=== PATIENT | female | born 1990 | race Caucasian/White ===

== ENCOUNTER 2016-10-06 13:31 | Inpatient (IN) | payer MEDICAID, OTHER ==
[~2016-10-06] VITALS: Ht 167.6 cm; Wt 131.4 kg
[2016-10-06] MEDS ORDERED: PRENAT PO (13:55)
[2016-10-06 13:56] VITALS: BP 138/80; PULSE 90; Ht 167.6 cm; Wt 131.4 kg
[2016-10-06 14:28] LABS: ADD UMIC YES; URINE BILIRUBIN (Dip) NEGATIVE (NEGATIVE); URINE BLOOD (Dip) TRACE (NEGATIVE); URINE COLOR LT. YELLOW (YELLOW); URINE GLUCOSE (Dip) NEGATIVE (NEGATIVE); URINE KETONES (Dip) NEGATIVE (NEGATIVE); URINE LEUKOCYTE ESTERASE (Dip) 2+ (NEGATIVE); URINE NITRITE (Dip) POSITIVE (NEGATIVE); URINE TOTAL PROTEIN (Dip) TRACE (NEGATIVE); URINE UROBILINOGEN (Dip) 0.2 E.U./dL (0.1-1.0)
[2016-10-06 14:38] LABS: BACTERIA,URINE FEW
--- NOTE | 2016-10-06 14:44 | RADRPT ---
PROCEDURE: US OB biophysical profile. CLINICAL INDICATION: decreased movements, PIH TECHNIQUE: Multiple sonographic images of the pelvis were obtained. The images were reviewed on a PACS workstation. COMPARISON: No prior studies are available for comparison. FINDINGS: There is a single viable intrauterine gestation. Cardiac activity is present with 128 beats per min [place]. There is a vertex presentation. The placenta is anterior. There is no evidence of placental abruption. There is a normal amount of amniotic fluid with an MICHELLE = 9.2 cm. Biophysical profile: movement 2/2 tone 2/2. breathing 2/2 MICHELLE 2/2 Total 12/02 RPTAT: AA . IMPRESSION: Normal biophysical profile. . .Hugo Jaeger MD, MD Date Time Electronically viewed and signed by .Hugo Jaeger MD, MD on 10/06/2016 14:44 .S/
[2016-10-06 15:11] LABS: ADD SCAN DIFF NO
[2016-10-06 15:15] LABS: BASOPHILS % 0.4 % (0.0-2.0); EOSINOPHILS # 0.1 10^3/ul (0.0-0.5); EOSINOPHILS % 1.2 % (0.0-7.0); HEMATOCRIT 37.4 % (37.0-47.0); HEMOGLOBIN 11.6 g/dl (12.0-16.0); LYMPHOCYTES # 1.3 10^3/ul (0.8-2.9); LYMPHOCYTES % 12.6 % (15.0-51.0); MEAN CORPUSCULAR HEMOGLOBIN 25.8 pg (29.0-33.0); MEAN CORPUSCULAR VOLUME 83.1 fl (82.0-101.0); MEAN PLATELET VOLUME 10.2 fl (7.4-10.4); MONOCYTE # 0.6 10^3/ul (0.3-0.9); MONOCYTES % 5.8 % (0.0-11.0); NEUTROPHIL # 8.1 10^3/ul (1.6-7.5); NEUTROPHILS % 79.7 % (39.0-77.0); PLATELET COUNT 306 10^3/UL (140-415); RED CELL DISTRIBUTION WIDTH 14.7 % (11.5-14.5); WHITE BLOOD COUNT 10.2 10^3/ul (4.8-10.8)
[2016-10-06 15:31] LABS: INR 0.93; PARTIAL THROMBOPLASTIN TIME 31.3 Sec (25.0-35.0); PROTIME 12.5 Sec (12.2-14.2)
[2016-10-06 15:43] LABS: ALBUMIN 3.7 g/dl (3.3-4.9); ALBUMIN/GLOBULIN RATIO 1.15; CALCIUM 9.4 mg/dl (8.4-10.2); CREATININE 0.53 mg/dl (0.44-1.00); POTASSIUM 4.2 mmol/L (3.5-5.1); TOTAL PROTEIN 6.9 g/dl (6.1-8.1); URIC ACID 5.5 mg/dl (3.1-7.9)
[2016-10-06] MEDS ORDERED: MISOPROSTOL 200 MCG TAB PR PRN (16:30)
[2016-10-06] MEDS ORDERED: MAGNESIUM SULFATE 4 GM/100 ML 100 ML IV ONE (16:30)
[2016-10-06] MEDS ORDERED: OXYTOCIN 30 UNITS/LR 500 ML IV SCH ×3 (16:30)
[2016-10-06] MEDS ORDERED: METHYLERGONOVINE 0.2 MG INJ IM PRN (16:30)
[2016-10-06] MEDS ORDERED: AMPICILLIN 2 GM/NS (PMX) 100 ML IV ONE (16:30)
[2016-10-06] MEDS ORDERED: LIDOCAINE 1% (MPF) 30 ML INJ INJ PRN (16:30)
[2016-10-06] MEDS ORDERED: BUTORPHANOL 2 MG INJ IV PRN ×2 (16:30)
[2016-10-06] MEDS ORDERED: CARBOPROST 250 MCG INJ IM PRN (16:30)
[2016-10-06] MEDS ORDERED: LACTATED RINGER'S 1,000 ML IV PRN (16:30)
[2016-10-06] MEDS ORDERED: OXYTOCIN 30 UNITS/LR 500 ML IV PRN (16:30)
[2016-10-06] MEDS: LACTATED RINGER'S 1,000 ML IV SCH (17:22)
[2016-10-06] MEDS: MAGNESIUM SULFATE 20 GM/500 ML 500 ML IV SCH (17:53)
[2016-10-06] MEDS ORDERED: LABETALOL HCL 20MG INJ ONE (20:14)
[2016-10-06] MEDS ORDERED: CEFAZOLIN 2 GM/50 ML (PMX) 50 ML IVPB ONE ×2 (20:28→20:30)
[2016-10-06] MEDS ORDERED: LABETALOL HCL 20MG INJ IV ONE (20:30)
[2016-10-06] MEDS ORDERED: AMPICILLIN 1 GM/NS (PMX) 50 ML IV SCH (20:30)
[2016-10-06] MEDS ORDERED: ONDANSETRON 4 MG INJ ONE (21:04)
[2016-10-06] MEDS ORDERED: OXYTOCIN 10 UNIT INJ ONE (21:04)
[2016-10-06] MEDS ORDERED: OXYTOCIN 30 UNITS/LR 500 ML IV ONE (21:04)
[2016-10-06] MEDS ORDERED: METOCLOPRAMIDE 10 MG INJ ONE (21:04)
[2016-10-06] MEDS ORDERED: EPHEDrine SULFATE 50 MG/5 ML SYG ONE (21:04)
[2016-10-06] MEDS ORDERED: morphine SULFATE/PF (10 MG/10 ML) INJ ONE (21:04)
--- NOTE | 2016-10-06 22:45 | HP ---
Date/Time of Note Date/Time of Note DATE: 10/06/16 TIME: 22:33 OB - History Hx of Present Free Text/Dictation 26 y.o pmigravida at 38w1d was sent for PIH evaluation . nst ND BPP NL AST was sl increased urine protein trac bp at office was 136/88 and 131/90 upto today no occasions of high bp during observation bp elevated to reach the point to induce labor magnesium sulfate was givem loading dose and hly cervidil was planed to be used for induction when I arrived it was [id number] that bp 180-190-/101/105 cervix long and closed delivery is far if we induce, explained the situation and risks ,primary section was chosen to be mode of delivery Chief Complaint: high bp Estimated Due Date: Oct 19, 2016 : 1 Para: 0 Spontaneous : 0 Therapeutic : 0 Care: Good Care Ultrasounds: Normal mid trimester US Obstetrical Complications: None Medical Complications: None Past Family/Social History * Past Medical, Surgical, Family and Obstetric Histories reviewed from chart. Blood Type: O+ Rubella: immune RPR/VDRL: Negative GBS Status: Positive HBsAG: Negative OB Admission Exam Vital Signs Vital Signs Vital Signs Date Time Temp Pulse Resp B/P Pulse Ox O2 Delivery O2 Flow Rate FiO2 10/06/16 13:56 98.0 90 138/80 Physical Exam HEENT: WNL Heart: Rhythm Normal Lungs: Clear, Equal Abdomen: WNL Extremities: Edema Reflexes: Hyperreflexia Present Cervical Dilatation: None Effacement: 0% Station: -3 Membranes: Intact Amniotic Fluid: Unevaluable Heart Rate: 140's Accelerations: Accelerations Present Decelerations: No Decelerations Varibility: Minimum Contractions on Admission: None Last 72 hours Lab Results CBC & BMP 10/06/16 14:00 Liver Function Test 10/06/16 14:00 Alanine Aminotransferase (ALT/SGPT) 49 Albumin 3.7 Alkaline Phosphatase 153 H Aspartate Amino Transf (AST/SGOT) 53 H Direct Bilirubin 0.00 Total Protein 6.9 OB Assessment/Plan Reason for admission: other (PIH) Plan: Section SON BRIDGES MD Oct 06, 2016 22:43
--- NOTE | 2016-10-06 22:53 | DELSUM ---
Delivery Summary A-C Datetime Report Generated by CPN: 10/06/2016 22:53 DELIVERY PERSONNEL Lime Plant Operator: Godoy, Joy MATERNAL INFORMATION Delivery Anesthesia: Spinal Medications in Delivery: SEE ANESTHESIA RECORDS Estimated Blood Loss (ml): 800 Placenta Cultured: No Maternal Complications: Other Other Maternal Complications: PIH LABOR SUMMARY EDC: 10/19/2016 00:00 No. Babies in Womb: 1 Attempted: No Labor Anesthesia: None LABOR INFORMATION Reason for Induction: Not Applicable Oxytocin: N/A Group B Beta Strep: Positive Antibiotics # of Doses: 2 Antibiotics Time of Last Dose: 10/06/2016 21:08 Steroids Given: None Reason Steroids Not Administered: Not Applicable Other Reason Not Administered: TERM MEMBRANES Membranes Rupture Method: Artificial Rupture of Membranes: 10/06/2016 21:36 Amniotic Fluid Color: Clear Amniotic Fluid Amount: Small CSECTION DELIVERY Primary Indication: Other Other Primary Indication: SEVERE PIH CSection Urgency: Emergency CSection Incidence: Primary Labor: N/A Elective: N/A CSection Incision: Lower Uterine Transverse BABY A INFORMATION Infant Delivery Date/Time: 10/06/2016 21:40 Method of Delivery: Born in Route : No : N/A Forceps: N/A Vacuum Extraction: Successful Shoulder Dystocia : N/A ASSISTED DELIVERY BABY A Indication for Assisted Delivery: PRESENTING PART HIGH Vacuum Number of Pulls: 1 Vacuum Number of PopOffs: 0 Vacuum Maximum Pressure Obtained: 100 Vacuum Flexographic Press Plate Setter: KIWI Total Time Vacuum Applied: 10 SECONDS SHOULDER DYSTOCIA BABY A Delivery Date/Time: 10/06/2016 21:40 PRESENTATION/POSITION BABY A Presentation: Cephalic Cephalic Presentation: Vertex Breech Presentation: N/A PLACENTA INFORMATION BABY A Placenta Delivery Time : 10/06/2016 21:41 Placenta Method of Delivery: Manual Removal Placenta Status: Delivered SCORES BABY A Heart Rate 1 min: >100 bpm Resp Effort 1 min: Good Cry Reflex Irritability 1 min: Cough/Sneeze/Pulls Away Muscle Tone 1 min: Active Motion Color 1 min: Body Colp, Extremit Blue Resuscitation Effort 1 min: Tactile Stimulation Heart Rate 5 min: >100 bpm Resp Effort 5 min: Good Cry Reflex Irritability 5 min: Cough/Sneeze/Pulls Away Muscle Tone 5 min: Active Motion Color 5 min: Body Colp, Extremit Blue Resuscitation Effort 5 min: Tactile Stimulation INFANT INFORMATION BABY A Gestational Age at Delivery: 38.1 Infant Outcome : Liveborn Infant Condition : Stable Sex: Male IDENTIFICATION/MEDS BABY A ID Band Number: [id number] ID Band Location: Right Leg; Left Arm Sensor Applied: Yes Sensor Number: [id number] Sensor Location : Cord Clamp Vitamin K Given : Not Given Erythromycin Given: Not Given WEIGHT/LENGTH BABY A Birthweight (gm): 2980 Infant Length (in): 19.50 CORD INFORMATION BABY A No. Cord Vessels: 3 Nuchal Cord : N/A Cord Blood Taken: Yes Suction: Mouth; Nose ASSESSMENT BABY A Complications: None Physical Findings at Delivery: Within Normal Limits Respirations: Appears Normal Senior Packaging Engineer/ALS Called : No Care By: JAKI/PRECIOUS Transferred To: Remains with Mother
[2016-10-06] MEDS ORDERED: NALOXONE (0.4 MG/ML) INJ IV PRN (23:00)
[2016-10-06] MEDS ORDERED: morphine SULFATE/PF (10 MG/10 ML) INJ SPINAL ONE (23:00)
[2016-10-06] MEDS ORDERED: DIPHENHYDRAMINE 50 MG INJ IV PRN (23:00)
[2016-10-06] MEDS ORDERED: EPHEDrine SULFATE 50 MG/5 ML SYG IV PRN (23:00)
[2016-10-06] MEDS ORDERED: KETOROLAC 30 MG INJ IV PRN (23:00)
[2016-10-06] MEDS ORDERED: ONDANSETRON 4 MG INJ IV PRN (23:00)
[2016-10-06] MEDS ORDERED: HYDROmorphONE 1 MG/ML SYG IV PRN ×2 (23:00)
[2016-10-06] MEDS ORDERED: morphine 2 MG INJ IV PRN ×2 (23:00)
[2016-10-07] VITALS (18 sets, daily range): BP systolic 113–135; BP diastolic 59–90; PULSE 94–127; RESP 18–20
[2016-10-07] MEDS ORDERED: LABETALOL 200 MG TAB PO PRN
[2016-10-07] MEDS ORDERED: ONDANSETRON 4 MG INJ IV PRN (01:30)
[2016-10-07] MEDS ORDERED: OXYCODONE/ACETAMINOPHEN (5/325) TAB PO PRN (01:30)
[2016-10-07] MEDS ORDERED: ZOLPIDEM 5 MG TAB PO PRN (01:30)
[2016-10-07] MEDS ORDERED: METHYLERGONOVINE 0.2 MG INJ IM PRN (01:30)
[2016-10-07] MEDS ORDERED: OXYTOCIN 30 UNITS/LR 500 ML IV PRN (01:30)
[2016-10-07] MEDS ORDERED: MISOPROSTOL 200 MCG TAB PR PRN (01:30)
[2016-10-07] MEDS ORDERED: LANOLIN 7 GM TUBE TOP PRN (01:30)
[2016-10-07] MEDS ORDERED: DIPHENHYDRAMINE 50 MG INJ IV PRN (01:30)
[2016-10-07] MEDS ORDERED: CARBOPROST 250 MCG INJ IM PRN (01:30)
--- NOTE | 2016-10-07 03:16 | OPR ---
DATE OF OPERATION: 10/06/2016 PREOPERATIVE DIAGNOSES: Intrauterine 38 weeks 1 day with severe -induced hyperte nsion. POSTOPERATIVE DIAGNOSES: Intrauterine 38 weeks 1 day with severe -induced hypert ension. Delivered normal male infant with 9 and 9. OPERATION PROCEDURE: Primary low transverse section. ANESTHESIA: Spinal. ANESTHESIOLOGIST: Dr. Catherine. SURGEON: Laura Dudley MD MOBILE WE[employer] APPLICATION DEVELOPER: Dr. Riley ESTIMATED BLOOD LOSS: 800 mL PROCEDURE: Under proper induction of spinal anesthesia, the patient was placed in the supine positi on. Abdominal wall was prepped and draped in usual aseptic manner. A transverse incision was made approximately 2 fingers above the pubic rami. Incision was carried down through the subcutaneous ti ssue to the anterior recti fascia which was incised transversely in length of the incision. Facial flap was created, 2 rectus muscles split in midline, and peritoneal cavity was entered. Low segment was exposed after bladder blade was introduced, and a transverse incision was made above the uterov esical reflection. Incision carried down and reached the amniotic fluid revealing clear moderate am ount of amniotic fluid, and normal male infant was born from the left occiput transverse position by using gentle vacuum because the space was tight and ____. The mouth and nose were cleaned, and cor d was delayed clamped and cut, and handed to the respiratory care personnel for further care. Cord blood was obtained. The placenta was removed. The uterus was exposed. Uterus was exteriorized. T here was some membranous tissue left in the uterus and some possibly a little ____ attached which wa s curetted with a large curet. One dose of Hemabate was given because the uterus was relaxing. Inc ision was closed using #1 chromic catgut in continuous manner, second layer using 1-0 chromic catgut with a thin ____. No bleeder was noted. Uterus was relocated into abdominal cavity after the irri gation done and sponge count taken which was correct. The uterine incisional site was rechecked for the bleeder, which was intact, and a piece of Surgicel was laid on it. The parietal peritoneum was closed using 0 chromic catgut in continuous manner. The muscle closed with 0 chromic catgut in con tinuous manner. Fascia closed with #1 Vicryl in continuous manner in 2 segments, and subcutaneous t issue was irrigated with water, and this layer was approximated with 2-0 plain in 2 layers. Skin cl osed with Insorb. Pressure dressing applied. Estimated blood loss approximately 500 mL. Urine out put during the surgery was approximately 200 mL. The patient withstood the procedure well and was s ent to recovery room in stable condition. Dictated By: LAURA SANDHU/JACKIE Conf#: [id number] DID#: [id number]
[2016-10-07] MEDS: MAGNESIUM SULFATE 20 GM/500 ML 500 ML IV SCH ×3 (05:24→23:35)
[2016-10-07] MEDS: LACTATED RINGER'S 1,000 ML IV SCH ×3 (05:25→16:24)
[2016-10-07] MEDS: IBUPROFEN 600 MG TAB PO SCH ×4 (06:00→23:36)
[2016-10-07 07:45] LABS: ADD SCAN DIFF NO
[2016-10-07 08:00] LABS: BASOPHILS % 0.2 % (0.0-2.0); EOSINOPHILS % 0.2 % (0.0-7.0); HEMATOCRIT 31.9 % (37.0-47.0); HEMOGLOBIN 10.2 g/dl (12.0-16.0); LYMPHOCYTES # 1.4 10^3/ul (0.8-2.9); MEAN CORPUSCULAR HEMOGLOBIN 25.9 pg (29.0-33.0); MEAN PLATELET VOLUME 10.3 fl (7.4-10.4); MONOCYTE # 0.7 10^3/ul (0.3-0.9); MONOCYTES % 5.6 % (0.0-11.0); NEUTROPHIL # 10.7 10^3/ul (1.6-7.5); NEUTROPHILS % 82.7 % (39.0-77.0); PLATELET COUNT 327 10^3/UL (140-415); RED BLOOD COUNT 3.94 10^6/ul (4.20-5.40); RED CELL DISTRIBUTION WIDTH 14.6 % (11.5-14.5); WHITE BLOOD COUNT 12.9 10^3/ul (4.8-10.8)
[2016-10-07] MEDS: SENNA/DOCUSATE NA (8.6MG/50MG) TAB PO SCH ×2 (09:00→21:00)
--- NOTE | 2016-10-07 14:32 | PN ---
Date/Time of Note Date/Time of Note DATE: 10/07/16 TIME: 14:29 OB Subjective Subjective Subjective no c/o passing flatus OB Objective Objective Objective vss mild tachycardia but angely than 120 b.p134/90 afebrile OB Assessment/Plan Other Assessment: stable post c/s#1 Other plan: as ordered SON BRIDGES MD Oct 07, 2016 14:32
[2016-10-08] MEDS ORDERED: IBUPROFEN 600 MG TAB PO SCH
[2016-10-08] MEDS: LACTATED RINGER'S 1,000 ML IV SCH ×3 (00:24→16:24)
[2016-10-08 02:47] VITALS: BP 129/72; PULSE 120; RESP 18
[2016-10-08] MEDS: OXYCODONE/ACETAMINOPHEN (5/325) TAB PO PRN ×2 (04:23→14:36)
[2016-10-08 05:11] VITALS: BP 123/71; PULSE 104; RESP 18
[2016-10-08] MEDS: IBUPROFEN 600 MG TAB PO SCH ×4 (06:10→23:52)
[2016-10-08] MEDS: MAGNESIUM SULFATE 20 GM/500 ML 500 ML IV SCH (08:27)
[2016-10-08 08:30] VITALS: BP 132/74; PULSE 94; RESP 20
[2016-10-08] MEDS: SENNA/DOCUSATE NA (8.6MG/50MG) TAB PO SCH ×2 (08:52→21:10)
--- NOTE | 2016-10-08 10:45 | PN ---
Date/Time of Note Date/Time of Note DATE: 10/08/16 TIME: 10:41 OB Subjective Subjective Subjective passing flatus tolerating diet ambulating well OB Objective Objective Objective vss afebrile abdomen soft wound dry lochia min calf no tenderness OB Assessment/Plan Other Assessment: satisfactory post c/s #2 Other plan: d/s home in am SON BRIDGES MD Oct 08, 2016 10:45
[2016-10-08 16:00] VITALS: BP 134/79; PULSE 104; RESP 18
[2016-10-08 19:35] VITALS: BP 131/63; PULSE 101; RESP 19
[2016-10-09 03:30] VITALS: BP 120/78; PULSE 96; RESP 19
[2016-10-09] MEDS: IBUPROFEN 600 MG TAB PO SCH ×3 (05:47→18:00)
[2016-10-09 08:30] VITALS: BP 115/72; PULSE 92; RESP 18
[2016-10-09] MEDS ORDERED: DIPHTH/TET/ACEL PERTUSS (ADULT) 0.5 ML VIAL IM* ONE (09:00)
[2016-10-09] MEDS: SENNA/DOCUSATE NA (8.6MG/50MG) TAB PO SCH (09:02)
[2016-10-09 16:00] VITALS: BP 108/59; PULSE 100; RESP 20
--- NOTE | 2016-10-09 18:20 | PD.PPDC ---
[employer] TOWER CONTROLLER Discharge Instruction Diagnosis Final Diagnosis: s/p primary section PIH Condition Patient Condition: Stable Diet Diet: Resume Regular Diet Activity/Restrictions Activity: May Shower Restrictions: No Lifting Minimize Walking Minimize Stair-climbing No Sexual Activity Nothing in the Vagina No [place] No Tampons, douche Wound/Drain Care Instructions Wound/Drain Care Instructions: Wash with soap and water Keep clean and dry Follow-up Follow-up with Physician: 2, Week/Weeks Return to clinic for MARTIAL ARTS INSTRUCTOR Instructions: Fever greater than 101 Chills Worsening abdominal pain Excessive Vaginal Bleeding More than 2 pads per hour Unable to tolerate diet OB Instructions: Breast Tenderness Depression Blurried Vision Headache Surgical Instructions: Incisional Drainage Incisional Redness SON BRIDGES MD Oct 09, 2016 18:20
--- NOTE | 2016-10-09 18:23 | DS ---
Date/Time of Note Date/Time of Note DATE: 10/09/16 TIME: 18:21 Obstetrical Discharge Record Final Diagnosis Final Diagnosis: Term delivered Other Final Diagnosis PIH Section Section: Primary Complications Preg induced Hypertension Augmentation: No Induction: No Tocolytics: Magnesium Sulfate Condition on Discharge Physical Assessment Last Vitals: normotensive afebrile Voiding: Yes Bowel Movement: Yes Breast: Soft, non-tender Fundus: Firm Abdomen and Incision: soft wound dry Calf Tenderness: No Patient Condition: Stable SON BRIDGES MD Oct 09, 2016 18:23
== END 2016-10-09 19:50 | disposition home or self-care (01) | DRG 766 ==
LOC: OBT 13:31 → L-D 13:32 → OBT 14:20 → L-D 16:20 → PP1 10-07 01:00
PROVIDERS: ADMIT Obstetrics & Gynecology; ATTEND Obstetrics & Gynecology
PROC: 10D00Z1 Extraction of Products of Conception, Low, Open Approach (ICD-10-PCS; principal; 2016-10-06 21:00)
DX: O13.4 Gestational [pregnancy-induced] hypertension without significant proteinuria, complicating childbirth (principal); O75.89 Other specified complications of labor and delivery; Z37.0 Single live birth; Z3A.38 38 weeks gestation of pregnancy
CPT/HCPCS: 36415; 76818; 80053; 81001; 83735; 84560; 85025; 85384; 85610; 85730; 86592; 86900; 86901; 87340; 90715; 94760; 99464; G0463; J0290; J0690; J1885; J2274; J2405; J2590; J2765; J3475; J7120

== ENCOUNTER 2017-03-21 08:57 | Emergency (ER) | payer OTHER ==
[~2017-03-21] VITALS: Ht 165.1 cm; Wt 120.0 kg
[~2017-03-21 08:57] MED LIST: PRENAT PO
[2017-03-21 08:58] VITALS: Ht 165.1 cm; Wt 120.0 kg
[2017-03-21] MEDS ORDERED: CARB15DR50 BOTH EARS (10:30)
[2017-03-21] MEDS ORDERED: FLUT9.9S NASAL (10:32)
--- NOTE | 2017-03-21 10:33 | ERD ---
ER Documentation Chief Complaint Chief Complaint Left ear "Muffeled" x 1 day HPI This is a 27-year-old female who presents the emergency department today complaining of muffled ears that started last night. Patient states her left is worse than her right. States that she did try to put a Q-tip in her ear and she thinks he put something inside. States she has had this problem in the past. Denies any fevers or chills. ROS All systems reviewed and are negative except as per history of present illness. Medications Home Meds Active Scripts Fluticasone Propionate (Flonase Allergy Relief) 9.9 Ml [place].susp, 2 SPRAY NASAL DAILY, #1 BOTTLE TO EACH NOSTRIL Prov:MARTY STEEL PA-C 03/21/17 Carbamide Peroxide* (Debrox*) 6.5% - 15 Ml Drops, 10 DROP BOTH EARS BID for 7 Days, BOTTLE Prov:MARTY STEEL PA-C 03/21/17 Reported Medications Multivit/Min/Fol Ac/Iron/Pren* ( S*) 1 Tab Tab, 1 TAB PO DAILY, TAB 10/06/16 Allergies Allergies: Coded Allergies: No Known Allergy (Unverified , 03/21/17) PMhx/Soc Medical and Surgical Hx: pt denies Medical Hx, pt denies Surgical Hx Hx Alcohol Use: No Hx Substance Use: No Hx Tobacco Use: No Smoking Status: Never smoker Physical Exam Vitals Vital Signs Date Time Temp Pulse Resp B/P Pulse Ox O2 Delivery O2 Flow Rate FiO2 03/21/17 08:58 97.6 104 18 142/87 99 Physical Exam Const: NAD Head: Atraumatic Eyes: Normal Conjunctiva ENT: Bilateral ear cerumen impaction. Nontender mastoids. Nose no drainage. Throat erythema no exudate no vesicles Neck: Full range of motion..~ No meningismus. Resp: Clear to auscultation bilaterally Cardio: Regular rate and rhythm, no murmurs Skin: No petechiae or rashes Neur: Awake and alert Psych: Normal Mood and Affect Procedures/MDM There is a 27-year-old female who presents the emergency department today complaining of muffled ears for the past couple of days. On physical exam patient had cerumen impaction. An ear lavage was done a significant amount of earwax was removed. Patient was still complaining of some muffled ears however the ears are clear at this time. Patient may have some fluid behind her ears and therefore I also gave her a prescription for Flonase in addition to the Debrox. She is afebrile and otherwise well-appearing. I have low suspicion for otitis media, otitis externa or mastoiditis. At this time the patient is stable for discharge and outpatient management. Patient should follow up with their PCP in the next 1-2 days. They may return to the emergency department sooner for any persistent or worsening of symptoms. Patient understood and agreed with the plan. Departure Diagnosis: Primary Impression: Ear problem Laterality: bilateral Qualified Code: H93.93 - Problem of both ears Condition: Fair Patient Instructions: Cerumen Impaction, Home Care Additional Instructions: Call your primary care doctor TOMORROW for an appointment during the next 1-2 days.See the doctor sooner or return here if your condition worsens before your appointment time. use drops as prescribed and do not put Q-tips in the ears MARTY STEEL PA-C Mar 21, 2017 10:33
== END 2017-03-21 10:46 | disposition home or self-care (01) ==
LOC: FTE 08:57
DX: H61.23 Impacted cerumen, bilateral (principal)
CPT/HCPCS: 69210; Z7502

== ENCOUNTER 2018-03-26 17:19 | Emergency (ER) | END 2018-03-26 18:52 | disposition home or self-care (01) ==

== ENCOUNTER 2018-07-14 18:13 | Emergency (ER) | payer OTHER ==
[~2018-07-14] VITALS: Ht 167.6 cm; Wt 120.5 kg
[~2018-07-14 18:13] MED LIST changes: +AZIT250T PO; +CARB15DR50 BOTH EARS; +FLUT9.9S NASAL; +PHEN-530 PO
[2018-07-15 02:05] VITALS: BP 135/77; PULSE 89; RESP 18; Ht 167.6 cm; Wt 120.5 kg
--- NOTE | 2018-07-15 02:22 | ERD ---
ER Documentation Chief Complaint Chief Complaint L ear pressure w/muffled hearing x <24 hrs HPI This is a 28-year-old female who presents here to emergency department for left ear pain for about 2 days. Stated it she used a Q-tip to clean her left ear but possibly push the earwax in. Stated that she called her primary care physician but her next appointment is going to be 3 weeks, and was told to come here to the emergency department if she cannot wait. Denies foreign body sensation to her left ear. LMP: 07/04/2018. . Denies headache, head injury, loss of consciousness, dizziness, neck pain, neck stiffness, throat pain, difficulty swallowing, difficulty breathing lying flat, shoulder pain, chest pain, back pain, abdominal pain, nausea, vomiting, constipation, diarrhea, urinary symptoms, or possibility being , loss of bowel and bladder control, trauma, injury, falls, difficulty walking due to pain, numbness or tingling sensation, calf pain, recent travel, recent major surgery in the last 3 weeks, calf pain, recent long travel, recent exposure to any illness, recent antibiotic use in the last 3 months, fever, chills, seizures. Past medical history: Surgical history: Social: Denies smoking, use of alcoholic beverages, use of illegal drugs. ROS All systems reviewed and are negative except as per history of present illness. Medications Home Meds Active Scripts Ibuprofen* (Motrin*) 800 Mg Tab, 800 MG PO Q6H PRN for PAIN AND OR ELEVATED TEMP, #20 TAB Prov:NAT GILLILAND 07/15/18 Azithromycin* (Zithromax*) 250 Mg Tablet, 250 MG PO .LUISCK DIRECTED, #6 TAB TAKE 500 MG (2 TABS) THE FIRST DAY THEN 250 MG (1 TAB) DAYS 2-5 Prov:ANTONETTE WINTERS MD 03/26/18 Phenylephrine/Dm/Acetaminop/GG (Sudafed PE Pressure+Pain+Cold) 1 Each Tablet, 1 EACH PO BID for 7 Days, #14 TAB Prov:ANTONETTE WINTERS MD 03/26/18 Fluticasone Propionate (Flonase Allergy Relief) 9.9 Ml [place].susp, 2 SPRAY NASAL DAILY, #1 BOTTLE TO EACH NOSTRIL Prov:MARTY STEEL PA-C 03/21/17 Carbamide Peroxide* (Debrox*) 6.5% - 15 Ml Drops, 10 DROP BOTH EARS BID for 7 Days, BOTTLE Prov:MARTY STEELCeleste BROWN 03/21/17 Reported Medications Multivit/Min/Fol Ac/Iron/Pren* ( S*) 1 Tab Tab, 1 TAB PO DAILY, TAB 10/06/16 Allergies Allergies: Coded Allergies: No Known Allergy (Unverified , 03/21/17) PMhx/Soc Medical and Surgical Hx: pt denies Medical Hx History of Surgery: Yes () Anesthesia Reaction: No Hx Neurological Disorder: No Hx Respiratory Disorders: No Hx Cardiac Disorders: No Hx Psychiatric Problems: No Hx Miscellaneous Medical Probl: No Hx Alcohol Use: No Hx Substance Use: No Hx Tobacco Use: No Smoking Status: Never smoker Physical Exam Vitals Physical Exam Const: No acute distress Head: Atraumatic Eyes: Normal Conjunctiva ENT: Normal External Ears, Nose and Mouth. Left ear: 100% earwax. No mastoid tenderness. No total hearing loss. Right ear: TM is not erythematous. No bleeding. No discharge. No hearing loss. No mastoid tenderness. Neck: Full range of motion. No meningismus. No nuchal rigidity no signs of meningeal irritation. Resp: Clear to auscultation bilaterally Cardio: Regular rate and rhythm, no murmurs Abd: Soft, non tender, non distended. Normal bowel sounds Skin: No petechiae or rashes Back: No midline or flank tenderness Ext: No cyanosis, or edema Neur: Awake and alert. Romberg test negative. No neurological deficit. Psych: Normal Mood and Affect Procedures/MDM Diagnostic tests: Clinical exam. I explained to the patient that she will need a Debrox but she insisted that I do a ear lavage. Treatment: Ear lavage. Re-evaluation: Left ear: TM is visualized without erythema. No mastoid tenderness. No bleeding. No discharge. Romberg test is negative. No neurological deficit. Differential diagnosis I have low suspicion for mastoiditis, peritonsillar abscess, meningitis, retained foreign body to ears, vertigo, loss of balance, otitis media, ruptured TM. Final diagnosis: Cerumen impaction with lavage. Prescription: Motrin. Follow-up with PCP in the next 24-48 hours. Come back here in the emergency department for any new symptoms or any worsening symptoms. All questions and concerns were answered. Patient and family members verbalized understanding and agreed with plan of care. Hemodynamically stable on discharge. Departure Diagnosis: Primary Impression: Cerumen impaction Condition: Stable Additional Instructions: Follow-up with PCP in the next 24-48 hours. Come back here in the emergency department for any new symptoms or any worsening symptoms. NAT GILLILAND Jul 15, 2018 02:22
[2018-07-15] MEDS ORDERED: IBUP800T48 PO (02:23)
== END 2018-07-15 03:15 | disposition home or self-care (01) ==
LOC: FTE 18:13
DX: H61.22 Impacted cerumen, left ear (principal)